=== PATIENT | male | born 1975 ===

== ENCOUNTER 2018-07-10 08:06 | Emergency (ER) | payer OTHER ==
[2018-07-10 08:06] VITALS: BMI 21.0
[2018-07-10 08:16] VITALS: BP 134/85; PULSE 76; RESP 18; TEMP 97.5; O2SAT 100
[2018-07-10] MEDS ORDERED: Amoxicillin-Clav 875-125 mg Tab PO STA (08:50)
--- NOTE | 2018-07-10 08:51 | C.PDOC ---
History Of Present Illness 43 year old male patient presents to the ER complaining of right ear pain for x2 days. 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 He denies fever, chills, running nose and cough. Time Seen by Provider: 07/10/18 08:21 Chief Complaint (Nursing): ENT Problem History Per: Patient History/Exam Limitations: None Onset/Duration Of Symptoms: Days (x2) Current Symptoms Are (Timing): Still Present Past Medical History Reviewed: Historical Data, Nursing Documentation, Vital Signs Vital Signs: Last Vital Signs Temp 97.5 F L 07/10/18 08:14 Pulse 76 07/10/18 08:14 Resp 18 07/10/18 08:14 BP 134/85 07/10/18 08:14 Pulse Ox 100 07/10/18 08:14 Primary Care Provider: FAMILY PROVIDER,NO - Medical History PMH: Depression, Pneumonia - [facility] Procedures GROUP PSYCHOTHERAPY (06/18/18) INDIVIDUAL PSYCHOTHERAPY, BEHAVIORAL (06/05/18) INDIVIDUAL PSYCHOTHERAPY, COGNITIVE-BEHAVIORAL (06/18/18) INDIVIDUAL PSYCHOTHERAPY, SUPPORTIVE (06/05/18) Family History: States: Unknown Family Hx - Social History Hx Alcohol Use: Yes Hx Substance Use: Yes Review Of Systems Except As Marked, All Systems Reviewed And Found Negative. Constitutional: Negative for: Fever, Chills ENT: Positive for: Ear Pain (right ). Negative for: Nose Discharge Respiratory: Negative for: Cough Physical Exam - Physical Exam Appears: Non-toxic, No Acute Distress Skin: Warm, Dry, No Pale, No Rash Head: Atraumatic, Normacephalic Eye(s): bilateral: EOMI Ear(s): Left: Normal, Right: TM Erythema, Other (swollen external canals, (+) pain with pulling of the pinna. No mastoid tenderness) Oral Mucosa: Moist Throat: Normal, No Erythema Neck: Normal ROM, Supple Lymphatic: No Adenopathy Cardiovascular: Rhythm Regular Respiratory: Normal Breath Sounds, No Rales, No Rhonchi, No Wheezing Extremity: Normal ROM, No Swelling Neurological/Psych: Oriented x3, Normal Speech Gait: Steady ED Course And Treatment O2 Sat by Pulse Oximetry: 100 (RA) Pulse Ox Interpretation: Normal Medical Decision Making Medical Decision Making: Plans: -- abx ear drops Disposition - Disposition Referrals: Kamar El MD [Staff Provider] - Disposition: HOME/ ROUTINE Disposition Time: 09:13 Condition: STABLE Additional Instructions: Follow up with the medical doctor within 1-2 days. Return if worsened. Prescriptions: Amoxicillin/Clavulanate [Augmentin 875 MG-125 MG] 1 tab PO BID #14 tab Ibuprofen [Motrin] 600 mg PO TID #21 tab Neomycin/Polymyxin/Hydrocortis [Cortisporin Otic Susp] 3 drop TOP TID #1 bottle Instructions: Ear Infections (Otitis Media) Forms: Kabam (Omani), Work Excuse - Clinical Impression Clinical Impression: Otitis externa, Otitis media - PA / WELFARE INTERVIEWER / Resident Statement / has reviewed & agrees with the documentation as recorded. - Scribe Statement The provider has reviewed the documentation as recorded by the Jitendra Chou Do All medical record entries made by the Jitendra were at my direction and personally dictated by me. I have reviewed the chart and agree that the record accurately reflects my personal performance of the history, physical exam, medical decision making, and the department course for this patient. I have also personally directed, reviewed, and agree with the discharge instructions and disposition.
[2018-07-10] MEDS ORDERED: Amoxicillin-Clav 875-125 mg Tab PO ONE (09:08)
== END 2018-07-10 09:18 | disposition home or self-care (01) ==
LOC: C.ER 08:06
DX: H60.91 Unspecified otitis externa, right ear (principal); H66.91 Otitis media, unspecified, right ear